=== PATIENT | male | born 1965 | race Caucasian/White ===

== ENCOUNTER 2017-01-04 10:11 | Outpatient (CLI) | payer MEDICAID | END 2017-01-04 10:12 | disposition home or self-care (01) | DX: E66.01 Morbid (severe) obesity due to excess calories (principal); E78.5 Hyperlipidemia, unspecified; I10 Essential (primary) hypertension ==

== ENCOUNTER 2017-08-15 08:00 | Outpatient (CLI) | payer OTHER | END 2017-08-15 08:01 | disposition home or self-care (01) | LOC: LAB.R 08:00 | PROVIDERS: ATTEND Emergency Medicine | DX: R19.7 Diarrhea, unspecified (principal) | CPT/HCPCS: 87045; 87046; 87493 ==

== ENCOUNTER 2017-08-15 15:29 | Emergency (ER) | payer MEDICAID, OTHER ==
--- NOTE | 2017-08-15 17:19 | ED Physician Documentation ---
PD HPI NVD - Stated complaint Stated Complaint: MALE - Chief complaint Chief Complaint: Abd Pain - History obtained from History obtained from: Patient - History of Present Illness Timing - onset: Other (He has had watery diarrhea for couple days this actually better today. 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 He did have some lower abdominal pain with this and a low-grade temperature of 100.1. No recent travel. He had a little bit of vomiting at the outset which is now gone.) Review of Systems Constitutional: reports: Fever Respiratory: denies: Dyspnea, Cough GI: reports: Abdominal Pain, Nausea, Vomiting, Diarrhea PD PAST MEDICAL HISTORY - Past Surgical History Past Surgical History: Yes General: Appendectomy - Present Medications Home Medications: Ambulatory Orders Medication Instructions Recorded Confirmed Saccharomyces Boulardii [Florastor] 500 mg PO BIDWM #20 capsule 03/08/14 - Allergies Allergies/Adverse Reactions: Allergies Allergy/AdvReac Type Severity Reaction Status Date / Time No Known Drug Allergies Allergy Verified 08/15/17 16:11 - Social History Does the pt smoke?: No Smoking Status: Never smoker Does the pt drink ETOH?: Yes Does the pt have substance abuse?: No PD ED PE NORMAL - Vitals Vital signs reviewed: Yes - General General: Alert and oriented X 3, No acute distress - Abdomen Abdomen: Normal bowel sounds, Soft, Non tender - Neuro Neuro: Alert and oriented X 3, Normal speech Results - Vitals Vitals: Vital Signs - 24 hr 08/15/17 08/15/17 16:06 17:30 Temperature 36.2 C L 36.5 C Heart Rate 83 82 Respiratory 20 18 Rate Blood Pressure 133/86 H 136/86 H O2 Saturation 97 98 Oxygen O2 Source Room air PD MEDICAL DECISION MAKING - ED course ED course: He presents with diarrhea, benign examination. No specific risk factors for C. difficile other than working in a shelter. He was unable to produce a stool sample while in the ER so was given a lab requisition for C. difficile and stool culture and will return a sample to the lab when he can Departure - Departure Disposition: 01 Home, Self Care Clinical Impression: Diarrhea Qualifiers: Diarrhea type: unspecified type Qualified Code(s): R19.7 - Diarrhea, unspecified Condition: Good Record reviewed to determine appropriate education?: Yes Instructions: ED Diarrhea Viral Comments: When able, drop a stool sample off at the lab with the lab requisition the results should be called to the emergency department and we will call you if positive. Call your doctor to arrange a follow-up appointment, make the next available appointment. In the interim, return anytime if worse or if new symptoms develop. Your blood pressure was elevated today on check into the emergency department. This does not mean that you have hypertension, it is a common phenomenon to come to the emergency department and have elevated blood pressure. I recommend that you see your primary care physician within the week to have it rechecked when you are feeling better. Discharge Date/Time: 08/15/17 18:17
[2017-08-15 17:40] VITALS: BP 136/86
== END 2017-08-15 18:17 | disposition home or self-care (01) ==
LOC: ED 15:29
DX: R19.7 Diarrhea, unspecified (principal); R03.0 Elevated blood-pressure reading, without diagnosis of hypertension
CPT/HCPCS: 87045; 87046; 87493; 99282; 99283

== ENCOUNTER 2018-08-11 14:34 | Outpatient (CLI) | payer MEDICAID, OTHER ==
[2018-08-11 19:35] LABS: CHOL/HDL RATIO 3.6 (<5.0); CHOLESTEROL 192 mg/dL; HDL CHOLESTEROL 53 mg/dL; LDL CHOLESTEROL,CALCULATED 122 mg/dL; LDL/HDL RATIO 2.3 (<3.6); VLDL CHOLESTEROL 17 mg/dL
== END 2018-08-11 23:59 | disposition home or self-care (01) ==
LOC: LAB.N 14:34
PROVIDERS: ATTEND Physician Assistant Medical
DX: E78.5 Hyperlipidemia, unspecified (principal)
CPT/HCPCS: 36415; 80061; 83721